=== PATIENT | male | born 1955 | race Caucasian/White ===

== ENCOUNTER 2017-06-22 11:43 | Emergency (ER) | payer OTHER ==
[~2017-06-22] VITALS: Ht 175.3 cm; Wt 86.2 kg
[~2017-06-22 11:43] MED LIST: ASPIRIN EC81 MG PO; FLOMAX0.4 MG PO; MELOXICAM15 MG PO; SIMVASTATIN40 MG PO; VITAMIN C500 M1 PO; VITAMIN D32000 UNI1 PO
[2017-06-22] MEDS ORDERED: ZOFRAN4 MG PO (15:23)
[2017-06-22] MEDS ORDERED: OXYCODONE HCL5 MG PO (15:23)
[2017-06-22] MEDS ORDERED: FLOMAX0.4 MG PO (15:23)
== END 2017-06-22 15:33 | disposition home or self-care (01) ==
LOC: ED 11:43
DX: N13.2 Hydronephrosis with renal and ureteral calculous obstruction (principal); Z79.82 Long term (current) use of aspirin; Z79.899 Other long term (current) drug therapy
CPT/HCPCS: 74176; 80053; 81001; 83690; 85025; 96374; 96375; 99282; J1170; J1885; J2405; J7030